=== PATIENT | female | born 1960 | race Caucasian/White ===

== ENCOUNTER → 2021-02-05 | Outpatient (CLI) | payer OTHER ==
[~2021-02-05] MED LIST: ALBUTEROL1.25 MG/3 NEB; ANORO; CARDIZEM CD120 MG PO; CARDIZEM CD240 MG PO; COMBIVENT0.074 GM/I INH; CORDARONE 200M200 MG PO; COUMADIN2 MG PO; ELIQUIS 5 MG TAB5 MG PO; GABAPENTIN300 MG PO; IPRATROPIU0.2 MG/1 M INH; LASIX40 MG PO; LEVAQUIN500 MG PO; LOPRESSOR 25 MG25 MG PO; LOPRESSOR50 MG PO; MEDROL4 MG PO; MIRALAX17 GM PO; NORCO 10-325 T1 EACH PO; OMEPRAZOLE20 MG PO; PREDNISONE20 MG PO; RANITIDINE HCL300 MG PO; SYMBICORT 160-1 INHA INH; VENTOLIN HFA 66.7 GM INH; VITAMIN D250000 UNIT PO; XOPENEX0.63 MG/3 INH
== END ==
LOC: KOH-I 01-22 13:00 → EMI 10:15
DX: M54.9 Dorsalgia, unspecified (principal); M43.17 Spondylolisthesis, lumbosacral region
CPT/HCPCS: 72148